=== PATIENT | female | born 1950 ===

== ENCOUNTER 2021-11-05 12:30 | Inpatient (IN) | payer OTHER ==
[~2021-11-05] VITALS: Ht 152.4 cm; Wt 61.7 kg
[2021-11-06] MEDS ORDERED: SYNTHROID75 MCG PO (07:58)
[2021-11-06] MEDS ORDERED: CARVEDILOL3.125 MG (07:58)
[2021-11-06] MEDS ORDERED: LIPITOR20 MG PO (07:58)
[2021-11-06] MEDS ORDERED: ACTOS15 MG PO (07:58)
[2021-11-06] MEDS ORDERED: COZAAR50 MG PO (07:59)
[2021-11-06] MEDS ORDERED: GABAPENTIN400 MG PO ×2 (07:59→08:00)
[2021-11-06] MEDS ORDERED: GLIMEPIRIDE2 MG (07:59)
[2021-11-06] MEDS ORDERED: FAMOTIDINE40 MG PO (08:00)
[2021-11-06] MEDS ORDERED: D3 + K2 DOTS 11 EACH PO (08:00)
[2021-11-06] MEDS ORDERED: OXYCODONE HCL10 M1 PO (08:01)
== END 2021-11-13 11:41 | disposition home or self-care (01) | DRG 330 ==
LOC: SURG 11-10 07:30 → O/R 11-10 07:30 → SURH 11-10 10:45 → SURG 11-10 17:20
PROVIDERS: ADMIT Colon & Rectal Surgery; ATTEND Colon & Rectal Surgery
PROC: 0DBP4ZZ Excision of Rectum, Percutaneous Endoscopic Approach (ICD-10-PCS; 2021-11-10)
PROC: 0DQ84ZZ Repair Small Intestine, Percutaneous Endoscopic Approach (ICD-10-PCS; 2021-11-10)
PROC: 0DTN4ZZ Resection of Sigmoid Colon, Percutaneous Endoscopic Approach (ICD-10-PCS; principal; 2021-11-10 12:30)
DX: K57.32 Diverticulitis of large intestine without perforation or abscess without bleeding (principal); K92.1 Melena; N73.6 Female pelvic peritoneal adhesions (postinfective); E11.40 Type 2 diabetes mellitus with diabetic neuropathy, unspecified; Z79.4 Long term (current) use of insulin; E03.8 Other specified hypothyroidism; I12.9 Hypertensive chronic kidney disease with stage 1 through stage 4 chronic kidney disease, or unspecified chronic kidney disease; E11.22 Type 2 diabetes mellitus with diabetic chronic kidney disease; N18.9 Chronic kidney disease, unspecified